=== PATIENT | female | born 1980 | race Caucasian/White ===

== ENCOUNTER 2016-06-16 00:20 | Emergency (ER) | payer BC ==
[~2016-06-16 00:20] MED LIST: LASIX20 M1 PO; LEXAPRO10 M2 PO; LISINOPRIL-HCT1 EAC2 PO; NEXIUM40 M1 PO; SINGULAIR10 M1 PO; VITAMIN B; VITAMIN D; XYZAL5 M1 PO
[2016-06-16] MEDS ORDERED: SYMBICORT 160-1 PUFF INH (00:37)
[2016-06-16] MEDS ORDERED: BREO ELLIPTA 11 EAC1 (00:37)
[2016-06-16] MEDS ORDERED: MUCINEX600 M1 PO (00:38)
[2016-06-16] MEDS ORDERED: VENTOLIN HFA18 G2 PO (00:38)
[2016-06-16] MEDS ORDERED: PREDNISONE20 M1 PO (01:20)
== END 2016-06-16 01:35 ==
LOC: EDMED 00:20
DX: J45.901 Unspecified asthma with (acute) exacerbation (principal); J20.9 Acute bronchitis, unspecified; I10 Essential (primary) hypertension; Z79.899 Other long term (current) drug therapy; Z79.51 Long term (current) use of inhaled steroids; Z98.890 Other specified postprocedural states
CPT/HCPCS: J7512